=== PATIENT | female | born 1935 | race Caucasian/White ===

== ENCOUNTER 2017-01-09 09:00 | Emergency (ER) | payer MEDICARE, OTHER ==
[~2017-01-09] VITALS: Ht 157.5 cm; Wt 60.0 kg
[~2017-01-09 09:00] MED LIST: AMLO-145 PO; AZOP1OP10 BOTH EYES; BIMA2.5D BOTH EYES; CITA20TA6 PO; COMBIG5 BOTH EYES; DONE10TA7 PO; FLUT16SP17 NASAL; IBUP-1542 PO; LOVA20TA PO; RESTOP4 BOTH EYES; TOPI-44 PO
[2017-01-09 09:03] VITALS: Ht 157.5 cm; Wt 60.0 kg
[2017-01-09] MEDS ORDERED: AMLO-147 PO (09:53)
[2017-01-09] MEDS ORDERED: METO-448 PO (09:53)
[2017-01-09] MEDS ORDERED: ATOR20TA38 PO (09:54)
[2017-01-09] MEDS ORDERED: OLOP2.5D5 OP (09:55)
[2017-01-09] MEDS ORDERED: DORZ10DR22 BOTH EYES (09:55)
[2017-01-09] MEDS ORDERED: FAMOTIDINE 20 MG TAB PO STA (10:03)
[2017-01-09] MEDS ORDERED: KETOROLAC 15 MG INJ IV STA (10:03)
[2017-01-09] MEDS ORDERED: SOD CHLORIDE 0.9% 500 ML IV STA (10:03)
[2017-01-09] MEDS ORDERED: ONDANSETRON 4 MG INJ IV STA (10:03)
[2017-01-09] MEDS ORDERED: BELLADONNA/PHENOBARBITAL TAB PO STA (10:03)
[2017-01-09] MEDS ORDERED: LIDOCAINE/MYLANTA 40 ML BTL PO STA (10:03)
[2017-01-09 10:49] LABS: ADD SCAN DIFF NO
[2017-01-09 10:52] LABS: BASOPHILS % 0.6 % (0.0-2.0); EOSINOPHILS # 0.2 10^3/ul (0.0-0.5); EOSINOPHILS % 3.3 % (0.0-7.0); HEMATOCRIT 43.9 % (37.0-47.0); HEMOGLOBIN 15.6 g/dl (12.0-16.0); LYMPHOCYTES # 0.9 10^3/ul (0.8-2.9); LYMPHOCYTES % 16.5 % (15.0-51.0); MEAN CORPUSCULAR HEMOGLOBIN 31.8 pg (29.0-33.0); MEAN CORPUSCULAR HGB CONC 35.5 g/dl (32.0-37.0); MEAN CORPUSCULAR VOLUME 89.6 fl (82.0-101.0); MEAN PLATELET VOLUME 11.2 fl (7.4-10.4); MONOCYTE # 0.5 10^3/ul (0.3-0.9); NEUTROPHIL # 3.6 10^3/ul (1.6-7.5); NEUTROPHILS % 69.4 % (39.0-77.0); PLATELET COUNT 177 10^3/UL (140-415); RED CELL DISTRIBUTION WIDTH 11.9 % (11.5-14.5); WHITE BLOOD COUNT 5.2 10^3/ul (4.8-10.8)
[2017-01-09 10:59] LABS: ADD UMIC YES; UR ASCORBIC ACID 20 mg/dL (NEGATIVE); UR BILIRUBIN (Dip) NEGATIVE (NEGATIVE); UR BLOOD (Dip) 2+ mg/dL (NEGATIVE); UR CLARITY SLIGHTLY CLOUDY (CLEAR); UR COLOR YELLOW (YELLOW); UR GLUCOSE (Dip) NEGATIVE (NEGATIVE); UR KETONES (Dip) NEGATIVE (NEGATIVE); UR LEUKOCYTE ESTERASE (Dip) TRACE Leu/ul (NEGATIVE); UR MUCUS FEW /HPF (NONE SEEN); UR NITRITE (Dip) NEGATIVE (NEGATIVE); UR RBC 85 /HPF (0-5); UR SPECIFIC GRAVITY (Dip) 1.016 (1.003-1.030); UR TOTAL PROTEIN (Dip) 2+ mg/dl (NEGATIVE); UR UROBILINOGEN (Dip) NEGATIVE (NEGATIVE)
[2017-01-09 11:16] LABS: ALANINE AMINOTRANSFERASE 57 IU/L (13-69); ALBUMIN 4.4 g/dl (3.3-4.9); ALBUMIN/GLOBULIN RATIO 1.18; ALKALINE PHOSPHATASE 81 IU/L (42-121); ANION GAP 16 (8-16); ASPARTATE AMINO TRANSFERASE 37 IU/L (15-46); BILIRUBIN,INDIRECT 0.5 mg/dl (0-1.1); BILIRUBIN,TOTAL 0.5 mg/dl (0.2-1.3); BLOOD UREA NITROGEN 22 mg/dl (7-20); CALCIUM 9.2 mg/dl (8.4-10.2); CARBON DIOXIDE 28 mmol/L (21-31); CHLORIDE 100 mmol/L (97-110); CREATININE 0.76 mg/dl (0.44-1.00); GLUCOSE 114 mg/dl (70-220); POTASSIUM 4.3 mmol/L (3.5-5.1); SODIUM 140 mmol/L (135-144); TOTAL PROTEIN 8.1 g/dl (6.1-8.1)
--- NOTE | 2017-01-09 11:26 | ERA ---
ER Documentation Chief Complaint Date/Time DATE: 01/09/17 TIME: 11:22 Chief Complaint bib daughter for abd pain x 1 week HPI 81-year-old woman brought in by daughter for abdominal pain. It has been nonradiating nonexertional mid abdominal pain without obvious precipitating or alleviating factors. Patient also points to the epigastrium when describing the pain. She has no other associated symptoms. She has had no nausea or vomiting, no diarrhea, no chest pain or shortness of breath, no headache or blurry vision. Patient denies genitourinary symptoms. ROS All systems reviewed and are negative except as per history of present illness. Medications Home Meds Active Scripts Ibuprofen* (Ibuprofen*) 600 Mg Tablet, 600 MG PO Q8 for PAIN AND/OR INFLAMMATION , #30 TAB Prov:MAXINE HALL MD 01/09/17 Cephalexin* (Keflex*) 500 Mg Capsule, 500 MG PO TID for 5 Days, CAP Prov:MAXINE HALL MD 01/09/17 Reported Medications Olopatadine HCl (Pazeo) 2.5 Ml Drops, 2.5 ML OP DAILY, BOTTLE 01/09/17 Dorzolamide-Timolol* (Cosopt*) 2%-0.5% - 10 Ml Soln, 1 DROP BOTH EYES BID, BOTTLE 01/09/17 Atorvastatin Calcium* (Atorvastatin Calcium*) 20 Mg Tablet, 20 MG PO QHS, #30 TAB 01/09/17 Metoprolol Tartrate* (Lopressor*) 25 Mg Tab, 25 MG PO BID, #60 TAB 01/09/17 Amlodipine Besylate* (Amlodipine Besylate*) 10 Mg Tablet, 10 MG PO DAILY, #30 TAB 01/09/17 Bimatoprost* (Lumigan*) 0.01%-2.5 Ml Opht Drops, 1 DROP BOTH EYES HS, EA 10/08/15 Brimonidine/Timolol* (Combigan*) 5 Ml Drops, 1 DROP BOTH EYES BID, BOTTLE 10/08/15 Fluticasone Propionate* (Fluticasone Propionate* Nasal) 50 Mcg/[place] - 16 Gm [place].susp, 2 SPRAYS NASAL DAILY, #1 BOTTLE TO EACH NOSTRIL 10/08/15 Donepezil* (Donepezil*) 10 Mg Tablet, 10 MG PO DAILY, #30 TAB 10/08/15 Citalopram Hydrobromide* (Citalopram Hydrobromide*) 20 Mg Tablet, 20 MG PO DAILY , #30 TAB 10/08/15 Cyclosporine* (Restasis* Oph) 32 Ea Droperette, 1 DROP BOTH EYES Q12, #1 BOX 10/08/15 Discontinued Reported Medications Brinzolamide* (Azopt*) 1%-5 Ml Drops.susp, 1 DROP BOTH EYES TID, BOTTLE 10/08/15 Lovastatin* (Lovastatin*) 20 Mg Tablet, 20 MG PO HS, TAB 10/08/15 Amlodipine Besylate* (Amlodipine Besylate*) 5 Mg Tablet, 5 MG PO DAILY, #30 TAB 10/08/15 Topiramate* (Topiramate*) 25 Mg Tablet, 25 MG PO BID, TAB 10/08/15 Discontinued Scripts Ibuprofen* (Motrin*) 600 Mg Tab, 600 MG PO Q6, #30 TAB Prov:YEN,JESSIE C 10/08/15 Allergies Allergies: Coded Allergies: codeine (Unverified Adverse Reaction, Unknown, DIZZY CANT WALK, 01/09/17) PMhx/Soc Dementia, hypertension, dyslipidemia Hx Alcohol Use: No Hx Substance Use: No Hx Tobacco Use: No Smoking Status: Never smoker FmHx Family History: No diabetes Physical Exam Vitals Vital Signs Date Time Temp Pulse Resp B/P Pulse Ox O2 Delivery O2 Flow Rate FiO2 01/09/17 12:12 77 18 155/75 99 Room Air 01/09/17 09:03 97.7 58 16 152/77 96 Physical Exam GENERAL: Well-developed, well-nourished, well-hydrated, in no apparent distress , looks nontoxic in appearance HEENT: Moist mucous membranes, pink conjunctiva, no cervical spine tenderness or step-off deformities, no goiter, no jaundice or icterus, extraocular movements intact without pain. No submandibular induration, and no pharyngeal erythema NEURO: Alert and oriented 3, cranial nerves II through XII intact bilaterally, pupils equal round reactive to light, no focal deficits or facial asymmetry, sensation intact distally Strength 5/5 in upper and lower extremities bilaterally CARDIAC: Regular rate and rhythm, no murmurs rubs or gallops LUNGS: Clear bilaterally no wheezing crackles or stridor ABDOMEN: Soft nontender, no guarding, no rigidity, no rebound, no psoas sign no obturator sign. Normoactive bowel sounds SKIN: Warm and dry to touch, no abrasions, contusions, or hematomas, no lacerations, no ecchymosis, no target lesions, and without ulcers EXTREMITIES: No clubbing cyanosis or edema, calves are bilaterally symmetrical, no Homans sign, no popliteal cord sign. Distal pulses equal and bilateral PSYCH: Normal affect without agitation or irritability Result Diagram: 01/09/17 1030 01/09/17 1030 Results 24 hrs Laboratory Tests Test 01/09/17 10:30 01/09/17 10:40 White Blood Count 5.210^3/ul Red Blood Count 4.9010^6/ul Hemoglobin 15.6g/dl Hematocrit 43.9% Mean Corpuscular Volume 89.6fl Mean Corpuscular Hemoglobin 31.8pg Mean Corpuscular Hemoglobin Concent 35.5g/dl Red Cell Distribution Width 11.9% Platelet Count 71189^3/UL Mean Platelet Volume 11.2fl Neutrophils % 69.4% Lymphocytes % 16.5% Monocytes % 10.0% Eosinophils % 3.3% Basophils % 0.6% Nucleated Red Blood Cells % 0.0/100WBC Neutrophils # 3.610^3/ul Lymphocytes # 0.910^3/ul Monocytes # 0.510^3/ul Eosinophils # 0.210^3/ul Basophils # 0.010^3/ul Nucleated Red Blood Cells # 0.010^3/ul Sodium Level 140mmol/L Potassium Level 4.3mmol/L Chloride Level 100mmol/L Carbon Dioxide Level 28mmol/L Anion Gap 16 Blood Urea Nitrogen 22mg/dl Creatinine 0.76mg/dl Glucose Level 114mg/dl Calcium Level 9.2mg/dl Total Bilirubin 0.5mg/dl Direct Bilirubin 0.00mg/dl Indirect Bilirubin 0.5mg/dl Aspartate Amino Transf (AST/SGOT) 37IU/L Alanine Aminotransferase (ALT/SGPT) 57IU/L Alkaline Phosphatase 81IU/L Troponin I < 0.012ng/ml Total Protein 8.1g/dl Albumin 4.4g/dl Globulin 3.70g/dl Albumin/Globulin Ratio 1.18 Lipase 130U/L Urine Color YELLOW Urine Clarity SLIGHTLY CLOUDY Urine pH 6.0 Urine Specific [place] 1.016 Urine Ketones NEGATIVEmg/dL Urine Nitrite NEGATIVEmg/dL Urine Bilirubin NEGATIVEmg/dL Urine Urobilinogen NEGATIVEmg/dL Urine Leukocyte Esterase TRACELeu/ul Urine Microscopic RBC 85/HPF Urine Microscopic WBC 6/HPF Urine Mucus FEW/HPF Urine Hemoglobin 2+mg/dL Urine Glucose NEGATIVEmg/dL Urine Total Protein 2+mg/dl Current Medications Medications (Trade) Dose Ordered Sig/Haylee Route PRN Reason Start Time Stop Time Status Last Admin Dose Admin Sodium Chloride (NS) 500 ml @ 500 mls/hr Q1H STAT IV 01/09/17 10:03 01/09/17 11:02 DC 01/09/17 10:44 Ondansetron HCl (Zofran Inj) 4 mg ONCE STAT IV 01/09/17 10:03 01/09/17 10:05 DC 01/09/17 10:45 Famotidine (Pepcid) 40 mg ONCE STAT PO 01/09/17 10:03 01/09/17 10:05 DC 01/09/17 10:45 Miscellaneous Medication (Gi Cocktail (2)) 40 ml ONCE STAT PO 01/09/17 10:03 01/09/17 10:05 DC 01/09/17 10:44 Belladonna/ Phenobarbital () 2 tab ONCE STAT PO 01/09/17 10:03 01/09/17 10:05 DC 01/09/17 10:45 Ketorolac Tromethamine 15 mg 15 mg ONCE STAT IV 01/09/17 10:03 01/09/17 10:05 DC 01/09/17 10:45 Ceftriaxone Sodium (Rocephin) 50 ml @ 100 mls/hr ONCE ONCE IVPB 01/09/17 11:30 01/09/17 11:59 DC 01/09/17 12:04 Procedures/MDM IV line was established patient was placed on fur glazer rhythm strip revealed a sinus rhythm at about 60 bpm with upright P and T waves. Patient was afebrile. EKG performed, read by me revealed a sinus bradycardia 54 bpm, normal axis, narrow QRS complex, no concerning ST elevations or depressions noted. CBC and electrolytes were normal, liver function tests normal, troponin negative , urine analysis concerning for infection. I initially administered 500 cc normal saline intravenously, Toradol 15 mg IV, Zofran 4 mg IV, GI cocktail 50 cc p.o., famotidine 40 mg p.o. with good effect. For early urinary tract infection patient received ceftriaxone [address] scan of the abdomen and pelvis was performed no acute inflammatory or infectious pathology was noted. Please refer to radiologist dictation for full report. Differential diagnoses considered, included but not limited to acute coronary syndrome, pulmonary embolism, aortic dissection, abdominal aortic aneurysm, sepsis, stroke, meningitis, encephalitis, pneumonia, appendicitis, cholecystitis , bowel obstruction, pyelonephritis, nephrolithiasis, cystitis, as well as metabolic, hematologic, and electrolyte abnormalities. As well as abscess, cellulitis, fractures, and dislocations. Patient feels much better at this time, and vital signs are normal, symptoms have improved. I did give strict instructions to return to the ED if symptoms continue or worsen, patient will otherwise follow-up with primary care physician. Patient understood instructions and agreed to plan. Disclaimer: Inadvertent spelling and grammatical errors are likely due to EHR/ dictation software use and do not reflect on the overall quality of patient care. Also, please note that the electronic time recorded on this note does not necessarily reflect the actual time of the patient encounter. Departure Diagnosis: Primary Impression: Abdominal pain Qualified Code: R10.84 - Generalized abdominal pain Additional Impression: UTI (urinary tract infection) Qualified Code: N30.00 - Acute cystitis without hematuria Condition: MAXINE Oliveira MD Jan 09, 2017 11:26
[2017-01-09 11:29] LABS: TROPONIN-I < 0.012 ng/ml (0.00-0.12)
[2017-01-09] MEDS ORDERED: CEFTRIAXONE 1 GM/50 ML (PMX) 50 ML IVPB ONE (11:30)
--- NOTE | 2017-01-09 11:34 | RADRPT ---
PROCEDURE: CT Abdomen and Pelvis without intravenous contrast. CLINICAL INDICATION: Abdominal pain . TECHNIQUE: CT scan of the abdomen and pelvis without intravenous contrast was performed on a multi -slice CT scanner. Coronal and sagittal reformatted images were obtained from the axial source image s. Images were reviewed on a high-resolution PACS workstation. Total DLP = 487.8 mGy-cm. CTDIvol = 9.1 mGy. One or more of the following dose reduction techniques were used: Automated exposure control. Adjustment of the mA and/or kV according to patient size. Use of iterative reconstruction technique. COMPARISON: None. FINDINGS: CT abdomen and pelvis: The lung bases are clear. The heart size is enlarged with calcific atherosclerosis of the coronary arteries and mitral valve.. The liver is normal in size and density without focal mass or intrahepa tic biliary dilatation. There is a small cyst in the right lobe of the liver.. The spleen is demetria l in size and homogeneous in density. There is a small calcified granuloma in the spleen. The panc reas as visualized is normal. The gallbladder shows no evidence of stones or distension . The adr enal glands are normal. The kidneys are symmetrically unremarkable. No urolithiasis, obstructive u ropathy, or solid mass lesion is seen. There are bilateral renal cysts measuring up to 8.8 cm in the right kidney. There is a 5 millimeter calcified stone in the right extrarenal renal pelvis. There is no evidence of obstructive uropathy. The stomach is partially collapsed, but is grossly unremarkable. The small bowels are unremarkable. The colon and rectum are normal. There is mild retained feces in the rectum. The appendix is normal . There is no evidence of appendicitis or diverticulitis. The pelvic organs are normal. The bladder is normal. There is no abdominal or pelvic adenopathy, free fluid, free air, mass or mesenteric inf lammation. The aorta is normal in caliber with calcific atherosclerosis . The osseous structures showing mild scoliosis and degenerative enthesopathy of the spine. No osteolytic or osteoblastic lesions are iden tified. There is a right hip arthroplasty in place. Soft tissues are unremarkable.. Lack of IV an d oral contrast limits sensitivity of exam. IMPRESSION: 1. Nonobstructing 5 mm renal stone in the left extrarenal pelvis. 2. Bilateral renal and mitral valve. 3. Calcific atherosclerosis of the aorta, coronary arteries and mitral valve. 4. Status post right hip arthroplasty. RPTAT: EE .Heath Damon MD, Date Time Electronically viewed and signed by .Heath Damon MD, on 01/09/2017 11:33 .L/
[2017-01-09 12:12] VITALS: BP 155/75; PULSE 77; RESP 18
[2017-01-09] MEDS ORDERED: CEPH-443 PO (12:27)
[2017-01-09] MEDS ORDERED: IBUP-1542 PO (12:27)
== END 2017-01-09 12:33 | disposition home or self-care (01) ==
LOC: E/R 09:00
DX: R10.84 Generalized abdominal pain (principal); N30.00 Acute cystitis without hematuria; R40.2142 Coma scale, eyes open, spontaneous, at arrival to emergency department; R40.2252 Coma scale, best verbal response, oriented, at arrival to emergency department; R40.2362 Coma scale, best motor response, obeys commands, at arrival to emergency department; I10 Essential (primary) hypertension
CPT/HCPCS: 74176; 80053; 81001; 83690; 84484; 85025; 93005; J0696; J1885; J2405; J7040; 36415; 96374; 96375

== ENCOUNTER 2018-01-17 10:36 | Emergency (ER) | END 2018-01-17 12:42 | disposition left against medical advice (07) ==